=== PATIENT | female | born 1985 | race Caucasian/White ===

== ENCOUNTER 2021-09-10 15:37 | Emergency (ER) | payer SELFPAY ==
[~2021-09-10] VITALS: Ht 167.6 cm; Wt 65.8 kg
[2021-09-10 15:40] VITALS: BP 132/77
--- NOTE | 2021-09-10 15:40 | NUR ---
ON & OFF HEADACHE/BODY ACHE AND NASAL CONGESTION X 1 MONTH
[2021-09-10 17:18] LABS: LYMPHOCYTES % (AUTO) 24.7 % (20.0-44.0); MONOCYTES # (AUTO) 0.4 K/uL (0.1-1.30)
[2021-09-10 17:44] LABS: CALCIUM, SERUM 8.9 mg/dL (8.5-10.1); CARBON DIOXIDE 27 mmol/L (21-32); CHLORIDE 102 mmol/L (98-107); CREATININE 0.6 mg/dL (0.6-1.3); GLUCOSE 87 mg/dL (74-106); POTASSIUM 3.8 mmol/L (3.5-5.1); SODIUM SERUM 137 mmol/L (136-145); UREA NITROGEN, BLOOD 7 mg/dL (7-18)
[2021-09-10 17:45] LABS: THYROID STIMULATING HORMONE 6.269 uIU/mL (0.358-3.74)
[2021-09-10 17:48] LABS: BASOPHILS # (AUTO) 0.1 K/uL (0.0-0.2); BASOPHILS % (AUTO) 0.7 % (0.0-2.0); EOSINOPHILS % (AUTO) 0.9 % (0.0-6.0); HEMATOCRIT 38 % (33-45); HEMOGLOBIN 12.9 g/dL (11.5-14.8); LYMPHOCYTES # (AUTO) 1.8 K/uL (0.8-4.8); MEAN CORPUSCULAR HGB CONC 34 g/dl (31.0-36.0); MEAN CORPUSCULAR VOLUME 95 fL (82-100); MONOCYTES % (AUTO) 5.5 % (2.0-12.0); NEUTROPHILS % (AUTO) 68.2 % (43.0-81.0); RED BLOOD CELL COUNT(AUTO) 3.99 MIL/uL (4.0-5.2); WHITE BLOOD COUNT (AUTO) 7.3 K/uL (4.3-11.0)
[2021-09-10 18:16] LABS: PLATELET COUNT (AUTO) 334 K/uL (150-450)
--- NOTE | 2021-09-10 18:57 | NUR ---
Patient discharged to home in stable condition. Written and verbal after care instructions given. Patient verbalizes understanding of instruction.
== END 2021-09-10 18:58 | disposition home or self-care (01) ==
LOC: ER 15:45
DX: R53.83 Other fatigue (principal); D64.9 Anemia, unspecified
CPT/HCPCS: 36415; 71045-TC; 80048-TC; 84443-TC; 84484-TC; 84702-TC; 85025-TC